=== PATIENT | female | born 1995 | race Caucasian/White ===

== ENCOUNTER 2016-09-15 22:35 | Emergency (ER) | payer OTHER ==
[~2016-09-15] VITALS: Ht 170.2 cm; Wt 92.8 kg
[~2016-09-15 22:35] MED LIST: FLOVENT 22120 INHALA IH; KEFLEX500 MG PO; MOTRIN600 MG PO; MOTRIN800 MG PO; NAPROSYN500 MG PO; NORCO 5/3251 TABLET PO; PERCOCET 5/31 TABLET PO; PREDNISONE50 MG PO; PRENATAL TABLE1 EAC3 PO; PROAIR HFA8.5 GM IH; PULMICORT FLEX90 MCG IH; SINGULAIR10 MG PO; VENTOLIN HFA18 GM IH; VYVANSE; VYVANSE30 MG PO; ZIRTEC; ZOFRAN4 MG PO; ZYRTEC10 M2 PO
[2016-09-15 22:42] VITALS: BP 136/77
[2016-09-15] MEDS ORDERED: PREDNISONE10 MG PO (22:58)
[2016-09-15] MEDS ORDERED: EPIPEN ADU0.3 MG/0.3 IM (22:58)
== END 2016-09-15 23:44 | disposition home or self-care (01) ==
LOC: EME 22:35 → EXP 22:35
DX: L30.9 Dermatitis, unspecified (principal); J45.909 Unspecified asthma, uncomplicated
CPT/HCPCS: 99281; 99283; J7512

== ENCOUNTER 2016-09-18 21:09 | Inpatient (IN) | payer OTHER ==
[~2016-09-18] VITALS: Ht 170.2 cm; Wt 100.0 kg
[~2016-09-18 21:09] MED LIST changes: +EPIPEN ADU0.3 MG/0.3 IM; +PREDNISONE10 MG PO
[2016-09-18 22:36] LABS: EOSINOPHIL (%) 0 % (0-5); IMMATURE GRANULOCYTE (%) 0.5 % (0.0-0.7); IMMATURE GRANULOCYTE COUNT 0.1 K/uL; INSTRUMENT ABS NEUTROPHIL CT 11.3 K/uL; LYMPHOCYTE COUNT 1.4 K/uL (1.0-2.8); MCH 28.1 PG (29.0-34.0); MCHC 32.8 G/DL (30.0-36.0); MCV 85.7 FL (83-99); MEAN PLAT.VOLUME 11.4 uM^3 (9.5-12.4); MONOCYTE (%) 7.4 % (3-12); NEUTROPHIL (%) 81.6 % (45-76); NEUTROPHIL COUNT 11.3 K/uL (1.8-6.4); PLATELET COUNT 352 K/uL (156-360); RBC DIS.WIDTH-CV 12.5 % (11.8-14.6); RBC DIS.WIDTH-SD 38.6 % (39-53); RED BLOOD COUNT 5.02 M/uL (3.80-5.20); WHITE BLOOD COUNT 13.8 K/uL (4.1-10.2)
[2016-09-18 22:45] LABS: AMPHETAMINE NEGATIVE (500 ng/mL); BARBITURATES NEGATIVE (200 ng/mL); BENZODIAZEPINES NEGATIVE (150 ng/mL); COCAINE NEGATIVE (150 ng/mL); INTERNAL CONTROLS VALID? YES; METHADONE NEGATIVE (200 ng/mL); METHAMPHETAMINE NEGATIVE (500 ng/mL); OPIATES (MORPHINE) NEGATIVE (100 ng/mL); OXYCODONE NEGATIVE (100 ng/mL); PHENCYCLIDINE NEGATIVE (25 ng/mL); PROPOXYPHENE NEGATIVE (300 ng/mL); THC CANNABINOIDS NEGATIVE (50 ng/mL); TRICYCLIC ANTIDEPRESSANTS NEGATIVE (300 ng/mL)
[2016-09-18 22:57] LABS: CHLORIDE 109 mEq/L (99-109); POTASSIUM 4.1 mEq/L (3.7-5.4); SODIUM 141 mEq/L (136-147)
[2016-09-18 23:00] LABS: GLUCOSE 101 mg/dL (70-99)
[2016-09-18 23:01] LABS: ANION GAP 10 MEQ/L (2-14); TOTAL BILIRUBIN 0.6 mg/dL (0.0-1.0)
[2016-09-18 23:03] LABS: ALKALINE PHOSPHATASE 82 IU/L (3-129); GFR ESTIMATE (CALCULATED) > 59 mL/min/; SERUM ETHYL ALCOHOL < 10 mg/dL
[2016-09-18 23:04] LABS: UREA NITROGEN (BUN) 10 mg/dL (9-23)
[2016-09-19] MEDS ORDERED: PREDNISONE10 MG PO (01:10)
[2016-09-19] MEDS ORDERED: VYVANSE40 MG PO (01:10)
[2016-09-19 05:46] LABS: CHLORIDE 107 mEq/L (99-109); SODIUM 140 mEq/L (136-147)
[2016-09-19 05:47] LABS: HEMATOCRIT 36.5 % (36.0-46.0); MCH 27.9 PG (29.0-34.0); MCHC 32.3 G/DL (30.0-36.0); MCV 86.3 FL (83-99); MEAN PLAT.VOLUME 11.2 uM^3 (9.5-12.4); PLATELET COUNT 266 K/uL (156-360); RBC DIS.WIDTH-CV 12.6 % (11.8-14.6); RBC DIS.WIDTH-SD 39.6 % (39-53); RED BLOOD COUNT 4.23 M/uL (3.80-5.20); WHITE BLOOD COUNT 10.7 K/uL (4.1-10.2)
[2016-09-19 05:49] LABS: GLUCOSE 106 mg/dL (70-99)
[2016-09-19 05:50] LABS: ANION GAP 6 MEQ/L (2-14)
[2016-09-19 05:52] LABS: ALKALINE PHOSPHATASE 67 IU/L (3-129); GFR ESTIMATE (CALCULATED) > 59 mL/min/
[2016-09-19 05:53] LABS: UREA NITROGEN (BUN) 10 mg/dL (9-23)
[2016-09-19 06:03] LABS: POTASSIUM 2.9 mEq/L (3.7-5.4); TOTAL BILIRUBIN 0.8 mg/dL (0.0-1.0)
[2016-09-19 18:19] LABS: HEMATOCRIT 35.8 % (36.0-46.0); MCV 86.5 FL (83-99)
[2016-09-19 20:42] VITALS: BP 118/74
[2016-09-20] VITALS (7 sets, daily range): BP systolic 118–146; BP diastolic 56–81
[2016-09-20 09:10] LABS: HEMATOCRIT 38.6 % (36.0-46.0); MCH 28.1 PG (29.0-34.0); MCHC 32.1 G/DL (30.0-36.0); MCV 87.3 FL (83-99); MEAN PLAT.VOLUME 11.4 uM^3 (9.5-12.4); PLATELET COUNT 260 K/uL (156-360); RBC DIS.WIDTH-CV 12.6 % (11.8-14.6); RBC DIS.WIDTH-SD 40.3 % (39-53); RED BLOOD COUNT 4.42 M/uL (3.80-5.20); WHITE BLOOD COUNT 5.9 K/uL (4.1-10.2)
[2016-09-20 09:28] LABS: ALKALINE PHOSPHATASE 69 IU/L (3-129); ANION GAP 6 MEQ/L (2-14); CHLORIDE 106 MEQ/L (99-109); GFR ESTIMATE (CALCULATED) > 59 mL/min/; GLUCOSE 86 mg/dL (70-99); SAMPLE HEMOLYSIS CHECK 0; SAMPLE ICTERIC CHECK 0; SAMPLE LIPEMIA CHECK 0; SODIUM 140 MEQ/L (136-147); TOTAL BILIRUBIN 0.7 MG/DL (0.0-1.0); UREA NITROGEN (BUN) 10 mg/dL (9-23)
[2016-09-20 09:29] LABS: POTASSIUM 3.9 MEQ/L (3.7-5.4)
[2016-09-20 09:34] LABS: EOSINOPHIL COUNT 0.2 K/uL (0-0.3); IMMATURE GRANULOCYTE (%) 0.2 % (0.0-0.7); INSTRUMENT ABS NEUTROPHIL CT 3.2 K/uL; LYMPHOCYTE COUNT 1.7 K/uL (1.0-2.8); MONOCYTE (%) 9.5 % (3-12); MONOCYTE COUNT 0.5 K/uL (0-0.8); NEUTROPHIL COUNT 3.2 K/uL (1.8-6.4)
[2016-09-21 04:04] VITALS: BP 125/69
[2016-09-21 06:22] LABS: EOSINOPHIL (%) 2.2 % (0-5); EOSINOPHIL COUNT 0.2 K/uL (0-0.3); HEMATOCRIT 35.3 % (36.0-46.0); IMMATURE GRANULOCYTE (%) 0.3 % (0.0-0.7); INSTRUMENT ABS NEUTROPHIL CT 3.7 K/uL; LYMPHOCYTE COUNT 2.2 K/uL (1.0-2.8); MCH 29.2 PG (29.0-34.0); MCHC 33.4 G/DL (30.0-36.0); MCV 87.4 FL (83-99); MEAN PLAT.VOLUME 11.1 uM^3 (9.5-12.4); MONOCYTE COUNT 0.8 K/uL (0-0.8); NEUTROPHIL (%) 54.3 % (45-76); NEUTROPHIL COUNT 3.7 K/uL (1.8-6.4); PLATELET COUNT 234 K/uL (156-360); RBC DIS.WIDTH-CV 12.4 % (11.8-14.6); RBC DIS.WIDTH-SD 39.8 % (39-53); RED BLOOD COUNT 4.04 M/uL (3.80-5.20); WHITE BLOOD COUNT 6.8 K/uL (4.1-10.2)
[2016-09-21 08:10] VITALS: BP 130/76
[2016-09-21] MEDS ORDERED: HYDROCODON-ACE1 EAC7 PO (09:51)
[2016-09-21 10:37] VITALS: BP 126/64
== END 2016-09-21 17:21 | disposition home or self-care (01) | DRG 816 ==
LOC: EME → EDBD 21:09 → EME 21:09 → EDOF 09-19 00:49 → 3EAST 09-19 00:49
PROVIDERS: Emergency Medicine; Surgery
DX: S36.030A Superficial (capsular) laceration of spleen, initial encounter (principal); J45.909 Unspecified asthma, uncomplicated; V43.52XA Car driver injured in collision with other type car in traffic accident, initial encounter; Y92.410 Unspecified street and highway as the place of occurrence of the external cause; M54.9 Dorsalgia, unspecified; M79.602 Pain in left arm
CPT/HCPCS: 70450; 71260; 72125; 72129; 72132; 73030; 73060; 74177; 80048 91; 80053; 85014; 85018; 85025; 85027; 86900; 86901; 94640; 94640 76; 99202; 99281; 99285; G0480; J3010; J7030; J7512